=== PATIENT | male | born 1940 | race Caucasian/White ===

== ENCOUNTER → 2017-07-02 | Outpatient (CLI) | payer MEDICARE, OTHER ==
--- NOTE | 2017-07-02 12:24 | Diagnostic Imaging Report ---
PROCEDURE: MRI lumbar spine. TECHNIQUE: Multiplanar, multisequence MRI of the lumbar spine was performed without contrast. INDICATION: Prior lumbar spine surgery years ago. Patient is complaining of bilateral lower extremity muscle cramping. COMPARISON: No prior MRI studies are available for comparison. FINDINGS: Curvature and alignment of the lumbar spine is normal. Vertebral body heights are maintained. No geographic marrow lesion is detected. There are postop changes in the lower lumbar spine of posterior instrumented fusion with vertical stabilization rods and bi-pedicular screws transfixing the L4-L5 level. There has been decompression laminectomy as well. There is a fluid collection identified in the surgical bed posterior to thecal sac at the L4 and L5 levels measuring 5.6 cm cephalocaudal x approximately 5.1 cm transverse x 3.5 cm AP. The fluid collection does exert some mass effect upon the posterior aspect of the thecal sac at the L5 level. This does narrow the central canal to approximately 6 mm AP diameter near the L4-L5 disc space. Generalized degenerative disc disease is seen. The conus is unremarkable at the L1 level. T12-L1: There is degenerative facet disease and degenerative disc disease but no significant central canal or neuroforaminal stenosis is seen. L1-L2: There is ligamentous thickening and facet changes but no significant central canal or neuroforaminal stenosis is seen. L2-L3: Laminectomy changes at this level are noted. Central canal is widely patent. A disc/osteophyte complex is present producing some mild narrowing of the neuroforamina bilaterally. L3-L4: Hypertrophic facet changes and ligamentous thickening is noted. There is moderate trefoil narrowing of the canal. Broad-based disc/osteophyte complex does produce significant lateral recess stenosis. There is also moderate bilateral neuroforaminal stenosis. L4-L5: Postsurgical changes, as described. There is central canal narrowing due to impression upon the posterior thecal sac by the fluid collection. No significant neuroforaminal stenosis is seen. L5-S1: Bulky hypertrophic facet changes are noted. There is broad-based disc/osteophyte complex present resulting in mild neuroforaminal narrowing. No significant central canal stenosis is seen. There appear to be bilateral renal cysts, incompletely included on this study. IMPRESSION: 1. Postsurgical changes through the lumbar spine, as described. A fluid collection at the surgical bed in the posterior soft tissues at the L4-L5 level does exert some mass effect upon the thecal sac at the L4-L5 level and narrows the central canal. This may represent postoperative seroma/hematoma. 2. Multilevel lumbar spondylosis with multilevel central canal, lateral recess, and neuroforaminal stenosis, described level by level above. Dictated by: Dictated on workstation # [id number]
== END ==
LOC: RAD 11:02
PROVIDERS: ATTEND Physician Assistant
DX: M48.061 Spinal stenosis, lumbar region without neurogenic claudication (principal); M99.73 Connective tissue and disc stenosis of intervertebral foramina of lumbar region; M51.36 Other intervertebral disc degeneration, lumbar region; Z98.1 Arthrodesis status
CPT/HCPCS: 72148